=== PATIENT | female | born 1950 | race Caucasian/White ===

== ENCOUNTER 2016-10-14 10:35 | Outpatient (CLI) | payer MEDICARE ==
[2016-10-14 11:54] LABS: PTT 34.3 SEC (22.9-36.1)
[2016-10-14 11:55] LABS: INR-International Normal Ratio 2.1; Prothrombin Time 24.1 SEC (12.0-14.7)
== END 2016-10-14 10:36 | disposition home or self-care (01) ==
LOC: MADLABBHPM 10:35
PROVIDERS: ATTEND Family Medicine
DX: R31.9 Hematuria, unspecified (principal)
CPT/HCPCS: 36415; 85610; 85730; 87086

== ENCOUNTER 2021-01-24 10:01 | Emergency (ER) | payer MEDICARE | END 2021-01-24 10:55 | disposition home or self-care (01) | LOC: MADERS 10:01 | DX: S82.61XA Displaced fracture of lateral malleolus of right fibula, initial encounter for closed fracture (principal); I25.10 Atherosclerotic heart disease of native coronary artery without angina pectoris; K21.9 Gastro-esophageal reflux disease without esophagitis; E78.5 Hyperlipidemia, unspecified; I10 Essential (primary) hypertension; Z79.899 Other long term (current) drug therapy; Z79.01 Long term (current) use of anticoagulants; X50.9XXA Other and unspecified overexertion or strenuous movements or postures, initial encounter | CPT/HCPCS: 27786 ==